=== PATIENT | male | born 1970 | race Caucasian/White ===

== ENCOUNTER 2020-08-18 20:54 | Emergency (ER) | payer SELFPAY ==
[~2020-08-18 20:54] MED LIST: PREDNICOT20 MG PO; VISTARIL25 M1 PO
== END 2020-08-18 22:00 | disposition home or self-care (01) ==
LOC: ED 20:54
DX: S05.01XA Injury of conjunctiva and corneal abrasion without foreign body, right eye, initial encounter (principal); Z87.891 Personal history of nicotine dependence; X58.XXXA Exposure to other specified factors, initial encounter; Y93.89 Activity, other specified; Y92.89 Other specified places as the place of occurrence of the external cause; Y99.8 Other external cause status